=== PATIENT | female | born 1965 | race Caucasian/White ===

== ENCOUNTER 2017-03-10 10:39 | Observation (INO) | payer OTHER ==
[~2017-03-10 10:39] MED LIST: ADDERALL 20 MG20 M1 PO; BAYER CHEWABLE81 MG PO; BELVIQ PO; CETIRIZINE HCL5 MG PO; CONCERTA 54 MG54 MG PO; CRESTOR10 MG PO; FLUTICASONE PRO16 GM NASAL; HYZAAR 50-12.51 TAB PO; MELATONIN 10 M1 EACH PO; PSEUDO-GEST60 MG PO; REQUIP3 MG PO
[2017-03-10 11:01] LABS: BASOPHILS 0.3 % (0-2); HEMATOCRIT 42.2 % (36.0-48.0); HEMOGLOBIN 13.5 g/dL (12-16); IMMATURE GRANULOCYTES 0.3 % (0-5); LYMPHOCYTES 31.3 % (15-50); MCH 27.2 pg (26.0-34.0); MCV 85.1 fL (80.0-100.0); MEAN PLATELET VOLUME 10.4 fL (7.4-10.4); MONOCYTES 5.2 % (2-11); NEUTROPHILS 57.9 % (40-80); PLATELET COUNT 258 10x3/uL (130-400); RBC 4.96 10x6/uL (4.00-5.40); RDW 13.7 % (11.5-14.5)
[2017-03-10 11:20] LABS: ALBUMIN 3.6 g/dL (3.4-5.0); ALKALINE PHOSPHATASE 106 U/L (46-116); ALT (SGPT) 46 U/L (10-68); BILIRUBIN - TOTAL 0.24 mg/dL (0.2-1.3); CALC OSMOLALITY 286 mosm/kg (275-300); CALCIUM 9.1 mg/dL (8.5-10.1); CARBON DIOXIDE 27.6 mmol/L (21.0-32.0); CHLORIDE - SERUM 106 mmol/L (98-107); CREATININE - SERUM 0.7 mg/dL (0.6-1.3); GLUCOSE 130 mg/dL (74-106); POTASSIUM - SERUM 3.8 mmol/L (3.5-5.1); PROTEIN - SERUM 7.2 g/dL (6.4-8.2); SODIUM 143 mmol/L (136-145); UREA NITROGEN 13 mg/dL (7-18); eGFR NON AFRICAN AMERICAN > 90 mL/min (90-120)
[2017-03-10 11:31] LABS: CHOL - HDL RATIO 4.1 ratio (2.3-4.1); CHOLESTEROL, TOTAL 159 mg/dL (0-200); CKMB 0.6 U/L (0.0-3.6); CREATINE KINASE 99 UL (21-215); HDL CHOLESTEROL 39 mg/dL (32-96); LDL CHOLESTEROL 89 mg/dL (0-100); LDL-HDL RATIO 2.3 ratio (1.5-3.5); TRIGLYCERIDE 158 mg/dL (30-200)
[2017-03-10 11:32] LABS: TROPONIN-I < 0.017 ng/mL (0.000-0.060)
[2017-03-10 12:57] LABS: CREATINE KINASE 91 UL (21-215)
[2017-03-10 12:59] LABS: TROPONIN-I < 0.017 ng/mL (0.000-0.060)
[2017-03-10 14:42] VITALS: BP 139/83; BMI 43.8
[2017-03-10 16:00] VITALS: BP 139/83
[2017-03-10 17:29] LABS: CKMB 0.7 U/L (0.0-3.6); CREATINE KINASE 83 UL (21-215)
[2017-03-10 17:31] LABS: TROPONIN-I < 0.017 ng/mL (0.000-0.060)
--- NOTE | 2017-03-10 19:36 | NUR ---
RECEIVED PT VIA W/C FROM ER TO ROOM 2123 IN STABLE CONDITION PT DENIES ANY DISCOMFORT OR NEEDS TELEMETRY APPLIED SR NAD NOTED
--- NOTE | 2017-03-10 19:50 | NUR ---
RESUMED CARE OF PT, LYING IN BED RESPIRATIONS EVEN AND UNLABORED ON ROOM AIR. 69 SR ON TELEMETRY. RIGHT HAND SALINE LOCKED. PLAN OF CARE DISCUSSED, NOT RECEPTIVE TO THE IDEA OF POSSIBLE HEART CATH. WILL CONTINUE TO MONITOR. SEE NURSE ASSESSMENT. CALL LIGHT IN REACH.
[2017-03-10 20:25] VITALS: BP 112/69
[2017-03-10 23:11] LABS: CKMB 0.4 U/L (0.0-3.6); CREATINE KINASE 84 UL (21-215)
[2017-03-10 23:12] LABS: TROPONIN-I < 0.017 ng/mL (0.000-0.060)
[2017-03-11 00:51] VITALS: BP 99/56
[2017-03-11 05:19] VITALS: BP 95/58
[2017-03-11 06:31] LABS: BASOPHILS 0.3 % (0-2); EOSINOPHILS 3.7 % (0-7); HEMATOCRIT 38.9 % (36.0-48.0); HEMOGLOBIN 12.3 g/dL (12-16); IMMATURE GRANULOCYTES 0.3 % (0-5); LYMPHOCYTES 28.9 % (15-50); MCH 27.2 pg (26.0-34.0); MCHC 31.6 g/dL (31.0-37.0); MCV 85.9 fL (80.0-100.0); MEAN PLATELET VOLUME 10.7 fL (7.4-10.4); MONOCYTES 4.3 % (2-11); NEUTROPHILS 62.5 % (40-80); PLATELET COUNT 251 10x3/uL (130-400); RBC 4.53 10x6/uL (4.00-5.40); RDW 13.8 % (11.5-14.5); WBC 7.5 10x3/uL (4.8-10.8)
--- NOTE | 2017-03-11 06:41 | NUR ---
SOME PALPITATIONS THROUGHOUT THE NIGHT, HOLDING NITRO PASTE AT THIS TIME DUE TO LOW BP
[2017-03-11 07:04] LABS: ALKALINE PHOSPHATASE 84 U/L (46-116); ALT (SGPT) 36 U/L (10-68); CALC OSMOLALITY 280 mosm/kg (275-300); CARBON DIOXIDE 27.8 mmol/L (21.0-32.0); CHLORIDE - SERUM 106 mmol/L (98-107); CKMB 0.3 U/L (0.0-3.6); CREATINE KINASE 66 UL (21-215); CREATININE - SERUM 0.6 mg/dL (0.6-1.3); GLUCOSE 133 mg/dL (74-106); PROTEIN - SERUM 6.1 g/dL (6.4-8.2); SODIUM 140 mmol/L (136-145); TROPONIN-I < 0.017 ng/mL (0.000-0.060); UREA NITROGEN 13 mg/dL (7-18); eGFR NON AFRICAN AMERICAN > 90 mL/min (90-120)
[2017-03-11 08:00] VITALS: BP 105/63
--- NOTE | 2017-03-11 09:51 | NUR ---
TELEMETRY SR. NO C/O C/P NOTED. CALL LIGHT IN REACH. WILL MONITOR NEEDS.
--- NOTE | 2017-03-11 11:08 | CN ---
PATIENT NAME:DAIJA ROJO MEDICAL RECORD: [id number] : 65 LOCATION:D. D.2124 ADMIT DATE: 03/10/17 ACCOUNT: [id number] CONSULTING PHYSICIAN: MESFIN AGUILAR MD REFERRING PHYSICIAN: EILEEN CLEMONS MD DATE OF CONSULTATION: 03/11/2017 HISTORY OF PRESENT ILLNESS: A 52-year-old female with a history of obesity, obstructive sleep apnea, hypertension, dyslipidemia, admitted with chest pain occurring during denominational. She had angiography back in April that was entirely normal with no lesions. Enzymes are currently negative. We are asked to see her concerning her cardiovascular status. PAST MEDICAL HISTORY: Includes: 1. History of hypertension. 2. Hyperlipidemia. 3. Obstructive sleep apnea. ALLERGIES: SULFA. MEDICATIONS: Include Zyrtec 5 mg p.o. daily, Sudafed 60 q.6 hours p.r.n., Hyzaar 50/12.5 one every day, Crestor 10 every day, Requip 1.5 bedtime, aspirin 81 every day, Concerta 54 mg p.o. every day. REVIEW OF SYSTEMS: The patient reports easy bruising but reports no swollen glands. The patient reports no fever, no night sweats, no significant weight gain, no significant weight loss. No significant exercise tolerance. The patient reports no dry eyes, no irritation, no vision change. Patient reports no difficulty hearing and no ear pain. Patient reports no frequent nose bleeds or nose and sinus problems. Patient reports on arm pain on exertion. No shortness of breath while lying down. No history of heart murmur. Patient reports no cough, no wheezing or coughing up blood. Patient reports no abdominal pain, no vomiting. Normal appetite. No diarrhea and not vomiting blood. No nausea and no constipation. Patient reports no incontinence. No difficulty urinating. No hematuria. No increased frequency. Patient reports no muscle aches. No weakness, no arthralgias, no back pain. No swelling of the extremities. Patient reports no abnormal mole, no jaundice, no rashes. Reports no loss of consciousness. No weakness and no numbness. No seizures, dizziness, or headaches. The patient reports no depression, no sleep disturbance, feeling safe in a relationship and no alcohol abuse. Patient reports on fatigue. Reports no runny nose or sinus pressure. No itching, no hives, and no frequent sneezing. PHYSICAL EXAMINATION: GENERAL: Pleasant female in no acute distress. VITAL SIGNS: Blood pressure 95/58, pulse 60 and regular. HEENT: Normocephalic, atraumatic. NECK: No JVD or bruit. HEART: Regular. LUNGS: Glez clear. ABDOMEN: Soft, nontender. EXTREMITIES: Pulses 2+ with no edema. NEUROLOGIC: Grossly intact. DIAGNOSTIC DATA: ECG without acute change. CONSULT REPORT [id number] DAIJA ROJO IMPRESSION: Chest pain. Enzymes are currently negative. Given the negative angiography within the last 9 months performed, no other ischemic workup. Agree with current management. Thank you for the consultation. TRANSINT:[id number] Voice Confirmation ID: [id number] DOCUMENT ID: [id number] MESFIN AGUILAR MD at 1108 CC: [id number] DICTATION DATE: 03/11/17 0845 TELEVISION REPAIR TEACHER: 03/11/17 1057 ADM IN [facility] [address] [place] [address]
--- NOTE | 2017-03-11 14:38 | NUR ---
AMBULATORY. REFUSES SCDS.
[2017-03-11 15:11] LABS: AMYLASE - SERUM 38 U/L (25-115); LIPASE 181 U/L (73-393)
[2017-03-11] MEDS ORDERED: CARAFATE1 G PO (15:37)
[2017-03-11] MEDS ORDERED: PROTONIX40 MG PO (15:38)
--- NOTE | 2017-03-11 16:07 | NUR ---
IV AND TELEMETRY DCD. DC PLANS GIVEN. UNDERSTANDING VOICED. ESCORTED TO CAR BY W/C.
--- NOTE | 2017-03-14 13:46 | EC ---
PATIENT:DAIJA ROJO DATE OF SERVICE: 03/10/17 SEX: F MEDICAL RECORD: [id number] DATE OF : [birth year] LOCATION:D.M2 D.212 AGE OF PATIENT: 52 ADMISSION DATE: 03/10/17 REFERRING PHYSICIAN: INTERPRETING PHYSICIAN: MESFIN AGUILAR MD ECHOCARDIOGRAM REPORT ECHO CHARGES 4 ECHO COMPLETE CLINICAL DIAGNOSIS: CP ECHOCARDIOGRAPHIC MEASUREMENTS (adult normal given) AC root (d.<3.7cm) 3.4 cm LV Septum d (<1.2 cm> 1.3 cm Valve Excursion 2.1 cm LV Septum (systole) 2.2 cm Left Atria (s.<4.0cm> 3.8 cm LVPW d(<1.2cm) 1.3 cm RV (d.<2.3cm) 2.1 cm LVPW (sytole) 2.5 cm LV diastole(<5.6CM) 5.9 cm MV E-F(>70mm/sec) cm LV systole 3.1 cm LVOT Diameter 1.9 cm MV exc.(>10mm) cm Est.ejection fraction (50-75%) % Pericardial Effusion N DOPPLER: LVIT cm/sec A 90.0 cm/sec E 74.0 cm/sec LA cm/sec RVSP 24.1 mmHg LVOT 121 cm/sec AOP1/2T m/s Asc. Ao 134 cm/sec RVOT 77.0 cm/sec RA cm/sec PA 97.0 cm/sec AV Gradient Peak 7.2 mmHg AV Mean 3.8 mmHg AV Area 2.4 cm MV Gradient Peak 3.6 mmHg MV Mean 1.3 mmHg MV Area cm COMMENTS: Coal Inspector: 1 CAITY PRICEOE [employer]ilities Supervisor: 3 Dr. Dillard TAPE# PACS DATE OF SERVICE: 03/11/2017 Adequate 2D echo, color flow, spectral Doppler, and M-mode. Borderline LVH. LV internal dimensions are normal. Wall motion is normal. EF is greater than or equal to 55%. Aortic valve is tricuspid. No stenosis by Doppler interrogation. Left atrium is normal. Mitral valve shows no prolapse. Trace MR. Right-sided chambers grossly normal. Trace TR. TRANSINT:[id number] Voice Confirmation ID: [id number] DOCUMENT ID: [id number] ECHOCARDIOGRAM REPORT [id number] DAIJA ROJO MESFIN AGUILAR MD at 1346 CC: [id number] DICTATION DATE: 03/12/17 1352 FREIGHT RECEIVER: 03/12/17 1424 DIS IN 03/11/17 [id number] [place] [address]
== END 2017-03-11 16:10 | disposition home or self-care (01) ==
LOC: D.ER 10:39 → D.M2 12:33 → OBSVTIME 12:33 → D.M2 12:33 → D.SDCHOLD 12:47 → D.M2 13:10
PROVIDERS: Family Medicine; ADMIT Family Medicine
DX: R07.9 Chest pain, unspecified (principal); I10 Essential (primary) hypertension; E78.5 Hyperlipidemia, unspecified; E66.9 Obesity, unspecified; G47.33 Obstructive sleep apnea (adult) (pediatric); Z87.891 Personal history of nicotine dependence